=== PATIENT | female | born 1950 | race Asian ===

== ENCOUNTER 2024-10-13 08:19 | Day surgery (SDC) | payer MEDICARE, OTHER ==
[2024-10-13] VITALS (16 sets, daily range): BP systolic 96–163; BP diastolic 52–134
[~2024-10-13] VITALS: Ht 154.9 cm; Wt 79.5 kg
[~2024-10-13 08:19] MED LIST: ASPI81CH PO; ATEN50 PO; CALCA500CH PO; CLOP75 PO; FAMO20 PO; FISH1000 PO; GLIPIZIDE ER5 MG PO; Glucophage1000 MG PO; JARDIANCE10 MG PO; LISI5 PO; LOVA40 PO; METF500 PO; MULVITMIND PO; ONDA4ODT; ONDA4ODT MM; PANT40 PO; RYBELSUS3 MG PO; SULTRIDS PO
--- NOTE | 2024-10-13 09:47 | NUR ---
10/13/24 0947 Joseluis Rainey CONFIRMED AND REVIEWED H&P, MEDCICATIONS, ALLERGIES, MEDICAL HISTORY, RESPIRATORY HISTORY, VITAL SIGNS, 3-LEAD EKG, CONSENTS, AND PHYSICIAN ORDERS. PATIENT CONFIRMS NPO STATUS AND AGREES WITH SCHEDULED PROCEDURE. MONITOR INTACT WITH CONTINUOUS PULSE OXIMETRY, CAPNOGRAPHY, 3-LEAD EKG, INTERMITTENT BP. SUPPLEMENTAL O2 TO BE TITRATED THROUGHOUT PROCEDURE TO MAINTAIN O2 SATURATION ABOVE 90%. PATIENT DETERMINED TO BE ASA APPROPRIATE FOR PROPOFOL SEDATION PRIOR TO START OF PROCEDURE BY DR. SORENSEN
--- NOTE | 2024-10-13 10:37 | NUR ---
DISCHARGE PT A&O4/VSS/RA/DRESSED SELF/PLEASANT, IV DC'D, CALIN PO H20, DENIES PAIN, DC INS PROVIDED/COPY SENT - REVIEWED WITH PT & -MAINTENANCE JOURNEYMAN, LEFT VIA WC WITH ALL PERSONAL POSSESSIONS TO GO HOME WITH .
== END 2024-10-13 23:00 | disposition home or self-care (01) ==
LOC: ORSCMMR 08:19 → ORD 09:30 → ORSCMMR 23:00
PROVIDERS: Internal Medicine Gastroenterology
PROC: 0DJD8ZZ Inspection of Lower Intestinal Tract, Via Natural or Artificial Opening Endoscopic (ICD-10-PCS; principal; 2024-10-13 09:30)
DX: Z12.11 Encounter for screening for malignant neoplasm of colon (principal); Z86.0100 Personal history of colon polyps, unspecified; E11.9 Type 2 diabetes mellitus without complications; I10 Essential (primary) hypertension; K57.30 Diverticulosis of large intestine without perforation or abscess without bleeding; Z87.11 Personal history of peptic ulcer disease; Z87.891 Personal history of nicotine dependence; Z86.73 Personal history of transient ischemic attack (TIA), and cerebral infarction without residual deficits; E78.00 Pure hypercholesterolemia, unspecified; Z79.02 Long term (current) use of antithrombotics/antiplatelets; Z79.84 Long term (current) use of oral hypoglycemic drugs; Z79.899 Other long term (current) drug therapy
CPT/HCPCS: 82947; J2704; J7120